=== PATIENT | female | born 1985 | race Caucasian/White ===

== ENCOUNTER 2018-01-23 19:03 | Emergency (ER) | payer MEDICAID, SELFPAY ==
[2018-01-23 19:04] VITALS: BP 103/67; PULSE 80; RESP 16; TEMP 36.4; O2SAT 99; BMI 17.6
--- NOTE | 2018-01-23 19:34 | ED.DCSUM_ITS ---
- ER Visit Summary Date of Service: 01/23/18 Chief Complaint: Back pain History of Present Illness: The patient is a 32 F presenting with back pain ?1 week. Patient states she does a lot of heavy lifting at work and at home. She does not recall a specific injury. She has history of previous back pain and sciatica. Pain goes from her lower back down both legs. She denies bowel or bladder incontinence. Denies fever. She is able to ambulate. She complains of diffuse shaking all over. She is taking Tylenol and ibuprofen at home with some relief. Physical Examination: Vitals are stable. Patient is afebrile. Alert no acute distress. HEENT exam is unremarkable. Neck is nontender Lungs are clear and equal bilaterally. Heart is regular rate and rhythm. Abdomen is soft nontender nondistended. Back: Bilateral paraspinal lumbar muscle tenderness, no midline tenderness. Extremities are unremarkable. Skin is warm and dry. No focal neurologic deficit. Normal strength and sensation bilaterally. Remainder of exam is unremarkable. Emergency Department Course and Treatment: Patient is given Toradol, Norflex IM with improvement. Chemistries unremarkable. Patient is advised to follow-up with her primary care physician. She is advised return to ED for any worsening complaints. Disposition: Discharge home Impression: Acute on chronic back pain This note was generated with [employer] dictation software. It may contain incorrect words, spelling, and punctuation that were not noted in review of the chart prior to signing ED Disposition - Plan for ED Patient: Chief Complaint: Back Referrals: Kerri Davenport PA [Primary Care Provider] -
[2018-01-23] MEDS: Orphenadrine 60 MG/2 ML Ampul IM (19:43)
[2018-01-23] MEDS: Ketorolac 60 MG/2 ML Vial IM (19:44)
[2018-01-23 20:00] LABS: Anion Gap 6 (5-15); BUN 10 mg/dL (7-18); Calcium,Total 8.7 mg/dL (8.5-10.1); Chloride 105 mmol/L (98-107); Creatinine, Serum 0.52 mg/dL (0.55-1.02); EST Glomerular Filtration Rate 145 mL/min (>60); Est Glom Filt Rate - Afr Amer 175 mL/min (>60); Estimated Creatinine Clearance 116.68 ml/min; Glucose 79 mg/dL (74-106); Potassium 4.2 mmol/L (3.5-5.1); Sodium Level 140 mmol/L (136-145)
--- NOTE | 2018-01-23 20:30 | ED.DEP ---
ED Disposition - Plan for ED Patient: Chief Complaint: Back Instructions: ED Neck Back Pain General Prescriptions: Cyclobenzaprine [Flexeril] 10 mg PO TID PRN #20 tablet PRN Reason: Muscle Spasm Referrals: Kerri Davenport PA [Primary Care Provider] -
[2018-01-23 20:41] VITALS: BP 106/72; PULSE 79; RESP 18; O2SAT 96
== END 2018-01-23 20:41 | disposition home or self-care (01) ==
LOC: ED 19:59
PROVIDERS: Emergency Provider Emergency Medicine; Family Provider Physician Assistant; PCP Physician Assistant
DX: M54.9 Dorsalgia, unspecified (principal); G89.29 Other chronic pain; Z72.0 Tobacco use; Z79.899 Other long term (current) drug therapy
CPT/HCPCS: 80048; 96372; 99282

== ENCOUNTER → 2018-10-22 13:20 | Outpatient (CLI) | payer MEDICAID, SELFPAY ==
--- NOTE | 2018-10-22 13:22 | BI_ITS ---
MAMMOGRAPHY - BILATERAL DIAGNOSTIC REASON FOR EXAM: Female, 33 years old. Several month history of left upper quadrant pain. Tested positive for BRCA2 gene. PERTINENT HISTORY: Mother with breast cancer. TECHNIQUE: Digital bilateral breast david (3D mammographic acquisition) in the CC and MLO projections. 2-D mediolateral oblique (MLO) and craniocaudad (CC) views of both breasts were obtained. CAD: Full Field Digital Mammography with Computer Added Detection was performed. COMPARISON: Comparison is made with prior examination dated March 07, 2017. FINDINGS: Breast Composition: The breasts are heterogeneously dense, which may obscure small masses. There are no dominant masses or suspicious calcifications. No other significant abnormalities are identified. There has been no significant change since the prior study. BI/DIAG MAMM W/CAD, BILAT IMPRESSION: Stable bilateral diagnostic mammogram. One year follow-up recommended. (A) ASSESSMENT CATEGORY: BIRADS Category 1: Negative. A letter regarding these results will be sent to the patient by the facility within 30 days. Approximately 10% of breast cancers are not detected by mammography. A normal mammogram should not delay biopsy of a clinically suspicious abnormality. Electronically Signed: Tai Peters MD at 9:44 EST Tel [phone], Service support ,
== END ==
PROVIDERS: Family Provider Physician Assistant; PCP Physician Assistant; Referring Provider Obstetrics & Gynecology; Visit Provider Obstetrics & Gynecology
DX: Z15.01 Genetic susceptibility to malignant neoplasm of breast (principal)
CPT/HCPCS: 77062; 77066; G0279

== ENCOUNTER → 2018-11-04 12:35 | Outpatient (CLI) | payer MEDICAID, SELFPAY ==
--- NOTE | 2018-11-04 12:45 | MRI_ITS ---
STUDY: BILATERAL BREAST MR WITHOUT AND WITH CONTRAST REASON FOR EXAM: Female, 33 years old. Pain in the top of the left breast for several months. Patient is BRCA positive. History of breast cancer in mother. TECHNIQUE: Multi-sequence multi-echo imaging of both breasts was performed with a dedicated breast coil. T1-weighted and T2-weighted images were performed before the administration of contrast. T1-weighted images were also performed after the administration of 5 mL of Gadavist contrast intravenously without complications. COMPARISON: Prior breast MRI dated March 17, 2017 and diagnostic mammograms dated October 22, 2018 and March 07, 2017 FINDINGS: RIGHT BREAST: The breast tissue is heterogeneously dense with mild background enhancement. There are no abnormal enhancing masses or areas of non-mass enhancement in the right breast. LEFT BREAST: The breast tissue is heterogeneously dense with mild background enhancement. The segmental enhancement in the left breast has resolved. There are no abnormal enhancing masses or areas of non-mass enhancement in the left breast. There are no enlarged or abnormal lymph nodes. There is no abnormality in the visualized regions of the chest or liver. MRI/Breast Bilateral W/O and W IMPRESSION: No significant abnormality on the breast MR examination with contrast. CATEGORY: BIRADS Category 2: Benign. A letter regarding these results will be sent to the patient by the facility within 30 days. Electronically Signed: Nasim Crowell MD at 10:45 EST , Service support ,
== END ==
PROVIDERS: Family Provider Physician Assistant; PCP Physician Assistant; Referring Provider Obstetrics & Gynecology; Visit Provider Obstetrics & Gynecology
DX: Z15.01 Genetic susceptibility to malignant neoplasm of breast (principal)
CPT/HCPCS: 77049; A9585; A4216; C8908

== ENCOUNTER → 2018-12-24 09:36 | Outpatient (CLI) | payer MEDICAID, SELFPAY ==
[2018-12-24 16:18] LABS: Chlamydia Trachomatis by PCR Negative (Negative); Neisserai gonorrhoeae by PCR Negative (Negative); Probe Check PASS; Sample Adequacy Control PASS; Specimen Processing Control PASS
[2018-12-26 03:07] LABS: HSV 1 By PCR Negative (Negative)
[2018-12-27 09:52] LABS: HSV 2 By PCR Positive (Negative)
== END ==
PROVIDERS: Visit Provider Obstetrics & Gynecology
DX: R10.2 Pelvic and perineal pain (principal); R30.0 Dysuria; Z11.3 Encounter for screening for infections with a predominantly sexual mode of transmission
CPT/HCPCS: 87086; 87491; 87529; 87591